=== PATIENT | female | born 2000 | race Caucasian/White ===

== ENCOUNTER 2022-01-16 13:50 | Observation (INO) ==
[2022-01-16] MEDS ORDERED: SODIUM CHLORIDE 0.9% 1,000 ML IV STA (15:43)
[2022-01-16] MEDS ORDERED: ONDANSETRON 4 MG/2 ML VIAL IV ONE (15:43)
[2022-01-16] MEDS ORDERED: MORPHINE 2 MG/1 ML SYRINGE IV ONE (15:43)
[2022-01-16 16:16] LABS: Basophils # 0.1 10*3/uL (0.0-0.2); Basophils % 0.6 % (0.0-0.8); Eosinophils # 0.1 10*3/uL (0.0-0.87); Eosinophils % 0.8 % (0.00-10.9); Hematocrit 37.5 VOL% (35.7-47.0); Immature Granulocytes % 0.3 %; Immature Granulocytes Absolute 0.03 #; Lymphocytes # 2.3 10*3/uL (1.4-4.0); Lymphocytes % 26.1 % (21.3-54.2); Mean Corpuscular Volume 83.5 FL (87-102); Mean Platelet Volume 10.5 FL (9.6-12.0); Monocytes # 0.6 10*3/uL (0.11-0.8); Monocytes % 6.4 % (1.7-12.7); Neutrophils % 65.8 % (38.7-73.9); Platelet Count 237 T/CUMM (130-400); Red Blood Count 4.49 MC/CUMM (3.8-5.5); Red Cell Distribution Width 12.6 % (9.3-17.3); White Blood Count 8.9 T/CUMM (4-12)
[2022-01-16 16:17] LABS: PT Patient Result 11.3 SECS (10.1-12.1)
[2022-01-16 16:25] LABS: Albumin 4.3 G/DL (3.4-5.0); Bilirubin,Total 0.9 MG/DL (0.20-1.00); Calcium 9.4 MG/DL (8.5-10.1); Osmolality,Calculated 279.4 MOS/KG (273-304); Potassium 3.8 MMOL/L (3.5-5.1); Total Protein 7.9 G/DL (6.4-8.2)
[2022-01-16 17:17] LABS: Bilirubin,Urine Negative (Negative); Blood, Urine Large mg/dL (Negative); Glucose,Urine (UA) Negative (Negative); Ketones,Urine 20 mg/dL (Negative); Mucus,Urine Moderate /LPF (Occasional); Nitrite,Urine Negative (Negative); Protein,Urine 100 mg/dL (Negative); RBC,Urine 349 /HPF (0-4); Urine Appearance CLOUDY (Clear); Urine Color Yellow (Yellow); Urine Specific Gravity 1.018 (1.001-1.035); Urine Urobilinogen < 2.0 eU/dL (<2.0)
[2022-01-16] MEDS ORDERED: metroNIDAZOLE INJ 500 MG/100 ML PREMIX IV STA (19:42)
[2022-01-16] MEDS ORDERED: LEVOFLOXACIN INJ 750 MG/150 ML PREMIX IV STA (19:42)
[2022-01-16] MEDS ORDERED: ONDANSETRON 4 MG/2 ML VIAL IV PRN (19:46)
[2022-01-16] MEDS ORDERED: PROMETHAZINE 25 MG/1 ML VIAL IM PRN (19:46)
[2022-01-16] MEDS ORDERED: ACETAMINOPHEN 325 MG TABLET PO PRN (19:46)
[2022-01-16] MEDS: MORPHINE 2 MG/1 ML SYRINGE IV ONE ×2 (19:52)
[2022-01-16] MEDS: MORPHINE 2 MG/1 ML SYRINGE IV PRN (19:52)
[2022-01-16] MEDS: LACTATED RINGERS 1,000 ML IV SCH (23:00)
[2022-01-17] MEDS: MORPHINE 2 MG/1 ML SYRINGE IV PRN (02:32)
[2022-01-17 04:49] LABS: Basophils % 0.5 % (0.0-0.8); Eosinophils # 0.1 10*3/uL (0.0-0.87); Eosinophils % 1.6 % (0.00-10.9); Hematocrit 31.7 VOL% (35.7-47.0); Hemoglobin 10.3 GM/DL (12.0-16.0); Immature Granulocytes % 0.4 %; Immature Granulocytes Absolute 0.02 #; Lymphocytes # 1.8 10*3/uL (1.4-4.0); Mean Corpuscular HGB Conc 32.5 GM/DL (32-36); Mean Corpuscular Volume 82.6 FL (87-102); Mean Platelet Volume 10.6 FL (9.6-12.0); Monocytes # 0.5 10*3/uL (0.11-0.8); Monocytes % 8.2 % (1.7-12.7); Neutrophils % 57.3 % (38.7-73.9); Platelet Count 172 T/CUMM (130-400); Red Blood Count 3.84 MC/CUMM (3.8-5.5); Red Cell Distribution Width 12.5 % (9.3-17.3); White Blood Count 5.6 T/CUMM (4-12)
[2022-01-17 05:09] LABS: Albumin 3.2 G/DL (3.4-5.0); Bilirubin,Total 0.6 MG/DL (0.20-1.00); Calcium 8.6 MG/DL (8.5-10.1); Osmolality,Calculated 275.5 MOS/KG (273-304); Potassium 3.8 MMOL/L (3.5-5.1); Total Protein 6.1 G/DL (6.4-8.2)
[2022-01-17] MEDS: metroNIDAZOLE INJ 500 MG/100 ML PREMIX IV SCH ×2 (06:37→14:39)
[2022-01-17] MEDS ORDERED: BUPIVACAINE MPF 0.25% 10 ML VIAL ONE (07:42)
[2022-01-17] MEDS ORDERED: TISSUE ADHESIVE 1 EACH APPLICATOR TOP ONE (07:42)
[2022-01-17] MEDS ORDERED: ROCURONIUM 50 MG/5 ML VIAL IV ONE (07:48)
[2022-01-17] MEDS ORDERED: propofoL 200 MG/20 ML VIAL IV ONE (07:48)
[2022-01-17] MEDS ORDERED: fentaNYL 100 MCG/2 ML VIAL ONE (07:48)
[2022-01-17] MEDS ORDERED: ONDANSETRON 4 MG/2 ML VIAL ONE (07:48)
[2022-01-17] MEDS ORDERED: LIDOCAINE 2% 5 ML VIAL ONE (07:48)
[2022-01-17] MEDS ORDERED: MIDAZOLAM 2 MG/2 ML VIAL ONE (07:48)
[2022-01-17] MEDS ORDERED: FAMOTIDINE 20 MG/2 ML VIAL IV ONE (08:26)
[2022-01-17] MEDS ORDERED: PANTOPRAZOLE 40 MG TABLET PO SCH (09:00)
[2022-01-17] MEDS ORDERED: ACETAMINOPHEN INJ 1,000 MG/100 ML VIAL IV ONE (09:12)
[2022-01-17] MEDS ORDERED: KETOROLAC 30 MG/1 ML VIAL ONE (09:12)
[2022-01-17] MEDS ORDERED: SUGAMMADEX 200 MG/2 ML VIAL IV ONE (09:14)
[2022-01-17] MEDS ORDERED: SEVOFLURANE 1 UNIT/15 MINUTE INH ONE (09:37)
[2022-01-17] MEDS ORDERED: ONDANSETRON 4 MG/2 ML VIAL IV PRN (10:20)
[2022-01-17] MEDS: HYDROmorphone 1 MG/1 ML SYRINGE IV PRN ×2 (10:25→10:35)
[2022-01-17] MEDS: LACTATED RINGERS 1,000 ML IV SCH ×2 (11:45→13:35)
[2022-01-17 15:40] VITALS: BP 117/61
[2022-01-17] MEDS ORDERED: LEVOFLOXACIN INJ 750 MG/150 ML PREMIX IV SCH (21:00)
== END 2022-01-17 18:00 | disposition home or self-care (01) ==
LOC: N.ED 13:50 → N.EDINP 13:50 → N.3E 01-17 08:19
PROVIDERS: ADMIT Surgery; ATTEND Surgery